=== PATIENT | female | born 2000 | race Caucasian/White ===

== ENCOUNTER 2021-03-21 08:48 | Outpatient (CLI) | payer BC, OTHER | END 2021-03-21 08:49 | disposition home or self-care (01) | LOC: MADRAD 08:48 | PROVIDERS: ATTEND Registered Nurse | DX: M54.9 Dorsalgia, unspecified (principal) | CPT/HCPCS: 72100 ==

== ENCOUNTER 2025-03-22 20:38 | Emergency (ER) | payer BC ==
[2025-03-22] MEDS ORDERED: predniSONE 20 MG TAB ONE (22:28)
== END 2025-03-22 22:35 | disposition home or self-care (01) ==
LOC: MADERS 20:38
DX: S83.92XA Sprain of unspecified site of left knee, initial encounter (principal); X58.XXXA Exposure to other specified factors, initial encounter; Y93.02 Activity, running
CPT/HCPCS: 99283; J7512